=== PATIENT | male | born 1995 | race Hispanic/Latino ===

== ENCOUNTER 2018-04-24 09:58 | Emergency (ER) | payer OTHER ==
[2018-04-24] MEDS ORDERED: Morphine 4 MG/ML VIAL IVP STA (10:35)
[2018-04-24] MEDS ORDERED: Sodium Chloride 0.9% 1,000 ML IV STA (10:36)
[2018-04-24] MEDS ORDERED: Morphine 4 MG/ML VIAL ONE (10:44)
--- NOTE | 2018-04-24 11:30 | C.PDOC ---
History Of Present Illness 23 year old male presents to ED with complaint of right shoulder pain. Patient states he grabbed the rail while going down the escalator when he fell and then heard a crack in his shoulder. He has a history of having the same shoulder dislocated twice two years ago.Patient has obvious shoulder deformity. Patient denies any numbness or weakness. - HPI Time Seen by Provider: 04/24/18 10:25 Chief Complaint (Nursing): Trauma History Per: Patient History/Exam Limitations: no limitations Onset/Duration Of Symptoms: Hrs Injury Occurred (Timing): Hours Ago: Location Of Injury: Right: Foot, Shoulder (dislocated) - Fall Fall:Prior To Injury: Tripped Past Medical History Reviewed: Historical Data, Nursing Documentation, Vital Signs Vital Signs: Last Vital Signs Temp 98.6 F 04/24/18 10:10 Pulse 56 L 04/24/18 10:55 Resp 16 04/24/18 10:55 BP 117/86 04/24/18 10:55 Pulse Ox 97 04/24/18 10:55 - Medical History PMH: No Chronic Diseases Surgical History: No Surg Hx Family History: States: Unknown Family Hx - Social History Hx Alcohol Use: No Hx Substance Use: No - Immunization History Hx Tetanus Toxoid Vaccination: No Hx Influenza Vaccination: No Hx Pneumococcal Vaccination: No Review Of Systems Constitutional: Negative for: Fever, Chills, Weakness Cardiovascular: Negative for: Chest Pain Respiratory: Negative for: Cough, Shortness of Breath Musculoskeletal: Positive for: Shoulder Pain (right) Neurological: Negative for: Weakness, Numbness, Dizziness Physical Exam - Physical Exam Appears: Non-toxic, Other (mild pain and discomfort) Skin: Normal Color, Warm, Dry Head: Atraumatic, Normacephalic Neck: Normal ROM, Supple Chest: Symmetrical, No Deformity Cardiovascular: Rhythm Regular, No Murmur Respiratory: No Accessory Muscle Use Gastrointestinal/Abdominal: Soft, No Tenderness Extremity: Capillary Refill (<2 seconds), Other (Right shoulder deformity) Pulses: Left Radial: Normal, Right Radial: Normal Neurological/Psych: Oriented x3, Normal Speech, Normal Cognition, Normal Motor (normal finger movement ) ED Course And Treatment O2 Sat by Pulse Oximetry: 97 (RA) - Other Rad Right shoulder X-ray X-Ray: Interpreted by Me, Viewed By Me Interpretation: Software Development Coordinator : Vel Kilgore MD. Approver2 : Report Date : 04/24/2018 12:01:06. My Comment : . Date of service: 04/24/2018. PROCEDURE: Radiographs of the Right Shoulder. HISTORY: post reduction. COMPARISON: No prior. FINDINGS: BONES: Normal. No fracture. JOINTS: Normal. Glenohumeral and acromioclavicular joints preserved. No osteoarthritis. SOFT TISSUES: Normal. OTHER FINDINGS: None. IMPRESSION: Normal radiographs of the right shoulder. Progress Note: Right shoulder X-ray. Patient given Morphine IVP, Fentanyl IVP, and IV fluids. Successful reduction of the right shoulder dislocation by ED attending . On re-evaluation patient feels better, no longer c/o pain. Shoulder immobilizer was applied. Patient was observed in Ed after procedure, no dizziness, tolerates po, ambulatory. Patient's father came to ED to take patient home. Orthopedic Time Out: Side verified Procedure: Joint reduction (right shoulder dislocation) Location: Right Consent obtained: Verbal Performed by: Attending Physician Diagnosis: Dislocation Type: Closed Location: Right Joints: Glenohumeral Joint Anesthetic Technique: Intravenous pain meds Capillary refill: Normal Distal Sensation: Normal Capillary Refill: Normal Compartment: Normal Distal Sensation: Normal Distal Motor Function: Normal Post-reduction Radiograph: Reduced Patient tolerated procedure: Well Disposition - Disposition Referrals: Jason Glez III, MD [Staff Provider] - Disposition: HOME/ ROUTINE Disposition Time: 12:42 Condition: STABLE Additional Instructions: Follow up with PMD and Orthopedist within 2-3 days. Return to ED if feel worse. 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 (Maribeth Bermeo) - Scribe Statement The provider has reviewed the documentation as recorded by the Scribe (Maribeth Bermeo) All medical record entries made by the Scribe were at my direction and personally dictated by me. I have reviewed the chart and agree that the record accurately reflects my personal performance of the history, physical exam, medical decision making, and the department course for this patient. I have also personally directed, reviewed, and agree with the discharge instructions and disposition. Orthopedic Care Application Of:: Shoulder Immobilizer
--- NOTE | 2018-04-24 11:34 | RAD ---
Date of service: 04/24/2018 PROCEDURE: Radiographs of the Right Shoulder HISTORY: dislocation COMPARISON: No prior. FINDINGS: BONES: No acute fracture. Anterior dislocation with anterior, inferior and medial dislocation of the humeral head relative to the glenoid. JOINTS: As above SOFT TISSUES: Normal. OTHER FINDINGS: None. IMPRESSION: Anterior dislocation right glenohumeral joint.
--- NOTE | 2018-04-24 12:04 | RAD ---
Date of service: 04/24/2018 PROCEDURE: Radiographs of the Right Shoulder HISTORY: post reduction COMPARISON: No prior. FINDINGS: BONES: Normal. No fracture. JOINTS: Normal. Glenohumeral and acromioclavicular joints preserved. No osteoarthritis. SOFT TISSUES: Normal. OTHER FINDINGS: None. IMPRESSION: Normal radiographs of the right shoulder.
[2018-04-24 12:57] VITALS: BP 112/64; PULSE 66; RESP 12; TEMP 97.7
[2018-04-24 14:10] VITALS: O2SAT 97
== END 2018-04-24 13:02 | disposition home or self-care (01) ==
LOC: C.ER 09:58
DX: S43.014A Anterior dislocation of right humerus, initial encounter (principal); W19.XXXA Unspecified fall, initial encounter
CPT/HCPCS: 23650; 73030; 96361; 96374; 96375; 99285; J2270; J3010; J7030